=== PATIENT | female | born 1995 | race Two or more races ===

== ENCOUNTER 2021-03-07 17:01 | Emergency (ER) | payer MEDICAID, OTHER ==
[~2021-03-07] VITALS: Ht 154.9 cm; Wt 68.0 kg
[2021-03-07 18:48] LABS: Urine Bacteria FEW /hpf (None Seen); Urine Blood 1+ /uL (Negative); Urine Mucus FEW (None Seen); Urine Specific Gravity 1.028 (1.001-1.035); Urine WBC 216 /hpf (0 - 5)
[2021-03-07] MEDS ORDERED: ONDANSETRON HCL 4 MG/2 ML VIAL IV ONE (20:45)
[2021-03-07] MEDS ORDERED: KETOROLAC TROMETH 30 MG/ML 1ML VIAL IV ONE (20:45)
[2021-03-07] MEDS ORDERED: SODIUM CHLORIDE 0.9% 1,000 ML IV ONE (20:45)
[2021-03-08] MEDS ORDERED: ONDANSETRON ODT 4 MG TAB PO ONE (01:15)
[2021-03-08] MEDS ORDERED: KETOROLAC TROMETH 30 MG/ML 1ML VIAL IM ONE (01:15)
[2021-03-08] MEDS ORDERED: CEPH-322 PO (01:16)
[2021-03-08 02:20] VITALS: BP 135/82
== END 2021-03-08 02:57 | disposition home or self-care (01) ==
LOC: ER 17:01
DX: N30.90 Cystitis, unspecified without hematuria (principal); N20.0 Calculus of kidney; Z79.2 Long term (current) use of antibiotics
CPT/HCPCS: 74176; 81001; 81025; 96372; 99284; J1885; Q0162